=== PATIENT | male | born 1985 | race Caucasian/White ===

== ENCOUNTER 2016-06-19 22:39 | Emergency (ER) | payer BC ==
[~2016-06-19] VITALS: Ht 195.6 cm; Wt 93.9 kg
[2016-06-19 22:41] VITALS: TEMP 36.6; Ht 195.6 cm; Wt 93.9 kg
[2016-06-19] MEDS ORDERED: DOXYCYCLINE HYCLATE 100 MG CAP PO STA (22:54)
[2016-06-19] MEDS ORDERED: VNTHFA/IN INH (23:02)
[2016-06-19] MEDS ORDERED: ADVIN10/60 INH (23:02)
[2016-06-19 23:14] VITALS: BP 125/71; PULSE 60; O2SAT 97
--- NOTE | 2016-06-19 23:57 | EMERGENCY ROOM VISIT NOTE ---
ED Visit Note First contact with patient: 22:45 CHIEF COMPLAINT: Tick bite HISTORY OF PRESENT ILLNESS: This 30-year-old male patient presents to the emergency department after they noticed a tick embedded in her left thigh. The patient did , but now has a circular jose c in the arearemove it. It had been on for less than one day. The patient's tetanus shot is reportedly up-to-date. The patient denies any rashes, fevers, chills, or lightheadedness. The patient denies joint tenderness. REVIEW OF SYSTEMS: A 6 system review of systems was completed with positives and pertinent negatives listed in the HPI. ALLERGIES: No known allergies MEDICATIONS: No chronic medications PMH: Otherwise healthy SOCIAL HISTORY: Lives locally with significant other PHYSICAL EXAM: Vital Signs: Reviewed Nurse's notes, vital signs stable. GENERAL : White male, in no acute distress, well-developed, well-nourished. SKIN: There is no tick embedded in the patient's right thigh, however there is a small zone of inflammation and eccymosis around the spot where the tick was. The skin is otherwise clear. NEUROLOGICAL: Alert and oriented to person place and time, cooperative. Sensory and motor functions grossly intact. ED COURSE: I examined the patient. He appears to have an area quite consistent with tick bite. The patient does have the take with him, he does appear to be a nutrient. The patient will be given a prophylactic 200 mg dose of doxycycline. He is to follow with his primary care physician with any ongoing or persistent symptoms. Current/Historical Medications Scheduled Fluticasone Prop/Salmeterol (Advair Diskus 100/50 60 Dose), 1 PUFF INH DAILY Scheduled PRN Albuterol Hfa (Ventolin Hfa), 2 PUFFS INH Q6H PRN for SOB/Wheezing Allergies Coded Allergies: No Known Allergies (Unverified , 06/19/16) Vital Signs Date Time Temp Pulse Resp B/P Pulse Ox O2 Delivery O2 Flow Rate FiO2 06/19/16 23:14 60 20 125/71 97 06/19/16 22:41 36.6 67 18 129/81 94 Room Air Medications Administered Medications (Trade) Dose Ordered Sig/Traci Route Start Time Stop Time Status Last Admin Dose Admin Doxycycline Hyclate (Vibramycin Cap) 200 mg NOW STAT PO 06/19/16 22:54 06/19/16 22:55 DC 06/19/16 23:12 200 MG Departure Information Impression Primary Impression: Tick bite Dispostion Home / Self-Care Condition GOOD Referrals Orlin Lee D.O. (PCP) Forms HOME CARE DOCUMENTATION FORM, IMPORTANT VISIT INFORMATION Patient Instructions My [facility] Additional Instructions You were seen and evaluated today on an emergency basis only. This is not a substitute for, or an effort to provide, complete comprehensive medical care. It is not possible to recognize and treat all injuries or illnesses in a single emergency department visit. For this reason it is recommended that you followup with your primary care physician within a persistent symptoms. Take doxycycline 200 mg 1 dose at home later tonight. Take this medication after eating a meal. You are welcome to return to the emergency department anytime with new, worsening, or concerning symptoms.
== END 2016-06-19 23:15 | disposition home or self-care (01) ==
LOC: C.EDB 22:39 → C.EDA 23:15
DX: S70.362A Insect bite (nonvenomous), left thigh, initial encounter (principal); W57.XXXA Bitten or stung by nonvenomous insect and other nonvenomous arthropods, initial encounter